=== PATIENT | female | born 1975 | race Caucasian/White ===

== ENCOUNTER 2018-10-02 18:28 | Emergency (ER) | payer OTHER ==
[2018-10-02 18:53] VITALS: BP 118/55; PULSE 73; TEMP 98.2; BMI 26.6
--- NOTE | 2018-10-02 18:54 | PDOC ---
Rapid Medical Evaluation Chief Complaint: Vaginal Bleeding Time Seen by Provider: 10/02/18 18:49 Medical Evaluation: 10/02/18 18:50 I have performed a brief in-person evaluation of this patient. The patient presents with a chief complaint of: LMP 08/02- - started vag bleed - no clots/ no fevers/ cramping. Pertinent physical exam findings: abd soft/ no tenderness I have ordered the following: BhCg, T&S, CbC, US transvag The patient will proceed to the ED for further evaluation. Discharge Disposition - Diagnosis Vaginal bleeding before 22 weeks gestation - Referrals - Patient Instructions - Post Discharge Activity
--- NOTE | 2018-10-02 19:39 | PDOC ---
History of Present Illness - General Chief Complaint: Vaginal Bleeding Stated Complaint: /HAEMORRHAGE Time Seen by Provider: 10/02/18 18:49 History Source: Patient Exam Limitations: No Limitations - History of Present Illness Initial Comments: 10/02/18 19:35 HISTORY OF PRESENT ILLNESS: 43-year-old woman who is 3 para 2 with the last menstrual period 08/02/18 who presents emergency department for evaluation of vaginal bleeding for 2 days. Patient was seen and evaluated at a clinic on Friday at baseline blood work done and when she went there today had labs redrawn but was not given any results. Patient has not had an ultrasound as of yet. Patient is not taking any medication and Friday was her first visit. She denies any abdominal pain, dysuria, hematuria, rectal bleeding, nausea or vomiting. No recent travel or sick contacts. PAST MEDICAL HISTORY: Denies past medical history SURGICAL HISTORY: Denies ALLERGIES: No known drug allergies REVIEW OF SYSTEMS General/Constitutional: Denies fever or chills. Denies weakness, weight change. HEENT: Denies change in vision. Denies ear pain or discharge. Denies sore throat. Cardiovascular: Denies chest pain or shortness of breath. Respiratory: Denies cough, wheezing, or hemoptysis. Gastrointestinal: Denies nausea, vomiting, diarrhea or constipation. Denies rectal bleeding. Genitourinary: Denies dysuria, frequency, or change in urination. Gynecological: see HPI Musculoskeletal: Denies joint or muscle swelling or pain. Denies neck or back pain. Skin and breasts: Denies rash or easy bruising. Neurologic: Denies headache, vertigo, loss of consciousness, or loss of sensation. Psychiatric: Denies depression or anxiety. Endocrine: Denies increased thirst. Denies abnormal weight change. Hematologic/Lymphatic: Denies anemia, easy bleeding, or history of blood clots. Allergic/Immunologic: Denies hives or skin allergy. Denies latex allergy. PHYSICAL EXAM General Appearance: Well-appearing, appropriately dressed. No apparent distress , no intoxication. Respiratory/Chest: Lungs CTAB. No shortness of breath, chest tenderness, respiratory distress, accessory muscle use. No crackles, rales, rhonchi, stridor , wheezing, dullness Cardiovascular: RRR. S1, S2. No JVD, murmur, bradycardia, tachycardia. Gastrointestinal/Abdominal: Normal bowel sounds. Abdomen soft, non-distended. No tenderness or rebound tenderness. No organomegaly, pulsatile mass, guarding, hernia, hepatomegaly, splenomegaly. Lymphatic: No adenopathy, tenderness. 10/03/18 02:54 Past History - Past Medical History Allergies/Adverse Reactions: Allergies Allergy/AdvReac Type Severity Reaction Status Date / Time No Known Allergies Allergy Verified 10/02/18 18:51 COPD: No - Immunization History Immunization Up to Date: Yes - Suicide/Smoking/Psychosocial Hx Smoking History: Never smoked Information on smoking cessation initiated: No Hx Alcohol Use: No Drug/Substance Use Hx: No *Physical Exam - Vital Signs Last Vital Signs Temp Pulse Resp BP Pulse Ox 98.2 F 73 18 118/55 L 99 10/02/18 18:50 10/02/18 18:50 10/02/18 18:50 10/02/18 18:50 10/02/18 18:50 ED Treatment Course - LABORATORY CBC & Chemistry Diagram: 10/02/18 19:30 Medical Decision Making - Medical Decision Making 10/02/18 19:37 A/P: 43-year-old woman who is 8 weeks by dates with vaginal bleeding Differential diagnosis includes-incomplete , completed , missed , ectopic , cervical ripening, vaginal trauma Labs including beta hCG Urine including culture T&S Transvaginal ultrasound Reassess 10/02/18 21:51 A single intrauterine gestation is noted at approximately 5 weeks 6 days. No definite cardiac activity is identified at this time-? Early viable gestation versus possible embryonic demise. 2.3 cm left ovarian cyst. CBC is unremarkable. Beta hCG is 8208 UA notable for 3+ blood without evidence of infection Blood type is pending 10/02/18 22:22 Patient's blood type is O+. No further intervention is needed. I will discharge home to follow-up with her STOREPERSON or emergency Department in 2 days. 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 *DC/Admit/Observation/Transfer Diagnosis at time of Disposition: Vaginal bleeding before 22 weeks gestation - Discharge Dispostion Condition at time of disposition: Stable Decision to Admit order: No - Referrals Referrals: Zoey Wehatley MD [Primary Care Provider] - - Patient Instructions Additional Instructions: Take your vitamins. Keep well-hydrated. Avoid tobacco and alcohol as well as illegal drugs. Make an appointment with your STOREPERSON for reevaluation. Return to your zinc skimmer or this ER in 2 days for repeat bloodwork. Return to the emergency department immediately for severe pain, vaginal bleeding that requires more than 2 pads per hour or for any other symptoms. Thank you very much for choosing us to provide your emergent health care needs. [place] chance vitaminas prenatales. Mantener cristian hidratado. Evite el tabaco y el alcohol, as parisa las drogas ilegales. Jazmyn doreen martin con juárez obstetra / gineclogo para juárez reevaluacin. Regrese a juárez gineclogo / obstetra o esta ER en 2 abdi para repetir el anlisis de georgi. Regrese al departamento de emergencias inmediatamente para el dolor intenso, el sangrado vaginal que requiere ms de 2 compresas por hora o para cualquier otro sntoma. Muchas silvio por elegirnos para satisfacer chance necesidades de atencin mdica de emergencia. - Post Discharge Activity
[2018-10-02 20:16] LABS: BASO % 0.4 % (0-2.0); EOS % 4.4 % (0-4.5); HEMATOCRIT 42.3 % (32.4-45.2); HEMOGLOBIN 14.3 GM/dL (10.7-15.3); LYMPH % 41.3 % (8-40); MCH 31.4 pg (25.7-33.7); MCHC 33.7 g/dl (32.0-36.0); MEAN CELL VOLUME 93.1 fl (80-96); MONO % 11.4 % (3.8-10.2); NEUT % 42.5 % (42.8-82.8); PLATELET COUNT 204 K/MM3 (134-434); RBC 4.54 M/mm3 (3.60-5.2); RDW 13.5 % (11.6-15.6); WHITE BLOOD COUNT 5.3 K/mm3 (4.0-10.0)
[2018-10-02 20:43] LABS: EPI CELLS 0.5 /HPF (0-5/HPF); URINE APPEARANCE CLEAR; URINE BACTERIA 45.4 /hpf (NEGATIVE); URINE BILIRUBIN NEGATIVE (NEGATIVE); URINE CASTS 0 /lpf (0-8); URINE COLOR YELLOW; URINE GLUCOSE (UA) NEGATIVE (NEGATIVE); URINE KETONE NEGATIVE (NEGATIVE); URINE LEUK ESTERASE TRACE (NEGATIVE); URINE NITRITE NEGATIVE (NEGATIVE); URINE PROTEIN NEGATIVE (NEGATIVE); URINE RBC 5 /hpf (0-4); URINE UROBILINOGEN 0.2 mg/dL (0.2-1.0); URINE WBC 2 /hpf (0-5)
== END 2018-10-02 23:12 | disposition home or self-care (01) ==
LOC: JER 18:28
DX: O26.891 Other specified pregnancy related conditions, first trimester (principal); O20.8 Other hemorrhage in early pregnancy; Z3A.01 Less than 8 weeks gestation of pregnancy; R31.9 Hematuria, unspecified
CPT/HCPCS: 36415; 76817-TC; 81003; 84702; 85025; 86850; 86900; 86901; 87086; 99283-25

== ENCOUNTER 2018-10-04 07:35 | Emergency (ER) | payer OTHER ==
[2018-10-04 07:53] VITALS: BP 107/69; PULSE 65; TEMP 98.4; BMI 26.6
--- NOTE | 2018-10-04 07:54 | PDOC ---
History of Present Illness - General Chief Complaint: Revisit, Lab Variance Stated Complaint: Vaginal Bleeding/FOLLOW UP Time Seen by Provider: 10/04/18 07:52 History Source: Patient Exam Limitations: Clinical Condition - History of Present Illness Initial Comments: 10/04/18 08:32 Patient she is to repeat to LMP August 02 present for repeat beta hCG and follow- up or vaginal bleeding status post presenting 2 days ago at 5.6 weeks with vaginal bleeding. Patient reported to having small amount of vaginal bleeding using 2 pads today which is not completely soaked. This is a wanted . Denies dizziness, weakness, palpitation, nausea or vomiting. Denies any other symptoms Timing/Duration: other (2 days) Past History - Past Medical History Allergies/Adverse Reactions: Allergies Allergy/AdvReac Type Severity Reaction Status Date / Time No Known Allergies Allergy Verified 10/04/18 07:49 COPD: No - Reproductive History (#): 3 Para: 2 - Immunization History Immunization Up to Date: Yes - Suicide/Smoking/Psychosocial Hx Smoking History: Never smoked Hx Alcohol Use: No Drug/Substance Use Hx: No Review of Systems - Review of Systems Able to Perform ROS?: Yes Is the patient limited Peruvian proficient: No Constitutional: No: Fever, Weakness HEENTM: No: Symptoms Reported Respiratory: No: Symptoms reported Cardiac (ROS): No: Symptoms Reported ABD/GI: No: Symptoms Reported, Nausea, Vomiting, Abdominal cramping : Yes: Other (vaginal bleeding ). No: Frequency, Urgency Musculoskeletal: No: Symptoms Reported Neurological: No: Symptoms reported, Weakness, Dizziness All Other Systems: Reviewed and Negative *Physical Exam - Vital Signs Last Vital Signs Temp Pulse Resp BP Pulse Ox 98.4 F 65 18 107/69 99 10/04/18 07:46 10/04/18 07:46 10/04/18 07:46 10/04/18 07:46 10/04/18 07:46 - Physical Exam General Appearance: Yes: Nourished, Appropriately Dressed. No: Apparent Distress HEENT: positive: Normal ENT Inspection Neck: positive: Supple Respiratory/Chest: negative: Respiratory Distress, Accessory Muscle Use Cardiovascular: positive: Regular Rhythm, Regular Rate Female Pelvic Exam: positive: normal external exam, cervical os closed, vaginal bleeding (small amount of blood in vaginal vault. no active bleeding). negative : CMT, lesions, adnexal tenderness Gastrointestinal/Abdominal: positive: Flat. negative: Tender, Organomegaly Musculoskeletal: positive: Normal Inspection. negative: CVA Tenderness Neurologic: positive: Fully Oriented, Alert Medical Decision Making - Medical Decision Making 10/04/18 08:33 Patient she is to repeat to LMP August 02 present for repeat beta hCG and follow- up or vaginal bleeding status post presenting 2 days ago at 5.6 weeks with vaginal bleeding. Patient reported to having small amount of vaginal bleeding using 2 pads today which is not completely soaked. This is a wanted . Denies dizziness, weakness, palpitation, nausea or vomiting. Denies any other symptoms Exam significant for small amount of blood in vaginal vault with no active bleeding. External os open to fingertip with internal os closed. No CMT. No visible lesions. Repeat beta hCG ordered. Transvaginal ultrasound ordered. Reassess after lab and imaging 10/04/18 10:06 Beta hcg is 7300 from 8200 two days ago. Pelvic US unchanged from 2 days ago and shows pos IUP of 5.6wks with YS. Symptoms likely missed AB. Patient not actively bleeding and has follow-up appt with her OB tomorrow. Patient stable for discharge *DC/Admit/Observation/Transfer Diagnosis at time of Disposition: Vaginal bleeding before 22 weeks gestation, Incomplete - Discharge Dispostion Disposition: HOME Condition at time of disposition: Stable Decision to Admit order: No - Referrals Referrals: Oral Guerrero MD [Staff Physician] - 10/05/18 10:00 am - Patient Instructions Printed Discharge Instructions: DI for Miscarriage Additional Instructions: Your hormone level decreased from 2 days ago which can be an indicative of a failed . Rest and increase fluid intake. Follow-up with your OB as scheduled tomorrow Print Language: SERBIAN - Post Discharge Activity
== END 2018-10-04 10:04 | disposition home or self-care (01) ==
LOC: JER 07:35
DX: O26.891 Other specified pregnancy related conditions, first trimester (principal); O03.4 Incomplete spontaneous abortion without complication; Z3A.01 Less than 8 weeks gestation of pregnancy
CPT/HCPCS: 36415; 76817-TC; 84702; 99283-25